=== PATIENT | male | born 1975 | race Caucasian/White ===

== ENCOUNTER 2023-08-02 08:40 | Outpatient (AMB) | payer BC, SELFPAY ==
--- NOTE | 2023-08-02 09:35 | AM.OFFWIN_ITS ---
Intake Vital Signs 08/02/23 09:39 Height 6 ft 1 in Weight 299 lb BMI 39.4 BP 160/100 H Blood Pressure Location Lt brachial Position Sitting Pulse 91 Temp 97.6 F Temp Source Temporal Artery Scan Pulse Oximetry (%) 98 Oxygen Delivery Method Room Air Intake Visit Reasons: EP chills congestion cough [id number] Intake Note: pt is here today for chills congestion cough started 2 weeks ago Patient Tobacco Use Status: Former Tobacco user Allergies No Known Allergies [No Known Allergies*] Allergy (Verified 08/05/23 19:49) Medication List - Last Reconciled 08/05/23 by Randal Nam MD albuterol sulfate 90 mcg/actuation 2 puffs PO Q6H PRN albuterol sulfate 2.5 mg (3 mL) inhalation QID PRN 30 days azithromycin (Zithromax) 250 mg PO ONCE 1 day codeine-guaifenesin 10-100 mg/5 mL 5 mL PO Q6H PRN diclofenac sodium 75 mg PO BID fluticasone propion-salmeterol 250-50 mcg/dose (Advair Diskus) 1 ea PO BID lisinopril 40 mg PO DAILY pantoprazole 20 mg PO DAILY 90 days prednisone 60 mg (3 x 20 mg) PO DAILY Do you need a note to return to daycare/school/sports/work: No HPI EP chills congestion cough [id number] HPI Details Patient presents for a sick visit. Reporting symptoms of sinus congestion, sore throat and difficulty swallowing. Low-grade fever. No family member is sick. No recent travel. Patient reports symptoms of malaise and fatigue. Symptoms of wheezing and headaches. [facility] Family History (Updated 07/02/20 @ 12:14 by Nneka Sullivan, KASSY, AGRICULTURAL TECHNICIAN) Father Unknown family medical history Mother Unknown family medical history Social History Patient Tobacco Use Status: Former Tobacco user Physical Exam Vital Signs: Last Vital Signs Temp 97.6 F 08/02/23 09:39 Pulse 91 08/02/23 09:39 BP 160/100 H 08/02/23 09:39 Pulse Ox 98 08/02/23 09:39 Oxygen Delivery Method Room Air 08/02/23 09:39 BMI result Body Mass Index 39.4 Const General: cooperative and healthy appearing Nutritional Appearance: well nourished Orientation/consciousness: patient oriented x3 Limitations: no limitations HEENT Head: Yes normal to inspection Eyes General: appearance normal, both eyes and all related structures Neck Neck: Yes normal visual inspection Chest Chest palpation & inspection: normal palpation of entire chest wall Resp Other: Bilateral rhonchi. Effort & Inspection: normal respiratory effort Neuro General: patient oriented x3 Assessment & Plan Assessment & Plan (1) Upper respiratory tract infection: Code(s): J06.9 - Acute upper respiratory infection, unspecified Plan Chest x-ray was personally reviewed by me. No infiltrate seen. Antibiotics ordered. Increase fluid intake. Tylenol for aches and pains. If symptoms worsen, follow-up here for a recheck. Flu swab ordered. Will call with results. Orders: Orders XR chest 2V 08/02/23 R05.9 - Cough, unspecified SARS-CoV2/FLU/RSV 08/02/23 R43.9 - Unspecified disturbances of smell and taste Medications: New azithromycin (Zithromax) 250 mg PO ONCE 4 tabs 0RF 1 day codeine-guaifenesin 10-100 mg/5 mL 5 mL PO Q6H PRN 120 mL 0RF allergy symptoms prednisone 60 mg (3 x 20 mg) PO DAILY 9 tabs 0RF Refilled albuterol sulfate 90 mcg/actuation 2 puffs PO Q6H PRN 8.5 grams 6RF for wheezing albuterol sulfate 2.5 mg (3 mL) inhalation QID PRN 15 mL 1RF shortness of breath or wheezing 30 days Coding Level of Care Code Est Pt Level 4 (62737) Diagnoses Upper respiratory tract infection J06.9
[2023-08-02 09:39] VITALS: BP 160/100; PULSE 91; TEMP 36.4; O2SAT 98; BMI 39.4
== END 2023-08-02 10:18 | disposition home or self-care (01) ==
PROVIDERS: PCP Nurse Practitioner Family; Visit Provider Internal Medicine
DX: J06.9 Acute upper respiratory infection, unspecified (principal)
CPT/HCPCS: 99214

== ENCOUNTER 2023-08-02 09:53 | Outpatient (REF) | payer BC, SELFPAY ==
--- NOTE | ~2023-08-02 | XR_ITS ---
EXAMINATION: XR CHEST CLINICAL INFORMATION: Cough and difficulty breathing unspecified COMPARISON: 01/07/2019 TECHNIQUE: 2 views of the chest were obtained. FINDINGS: Lungs clear. No pleural effusions. No pneumothorax. Heart and pulmonary vessels normal. XR/XR chest 2V IMPRESSION: No active disease.
[2023-08-02 15:27] LABS: Influenza A PCR NEGATIVE (Negative); Influenza B PCR NEGATIVE (Negative); Resp Syncy Virus RNA Qual PCR NEGATIVE (Negative); SARS COV2 PCR INHOUSE NEGATIVE (Negative)
== END 2023-08-02 09:54 | disposition home or self-care (01) ==
LOC: HO.HMGCX 09:53
PROVIDERS: Visit Provider Internal Medicine
DX: Z11.52 Encounter for screening for COVID-19 (principal); Z20.822 Contact with and (suspected) exposure to COVID-19; R05.9 Cough, unspecified; R43.9 Unspecified disturbances of smell and taste
CPT/HCPCS: 0241U; 71046

== ENCOUNTER 2023-08-02 12:55 | Outpatient (REF) | payer BC, SELFPAY | END 2023-08-02 12:56 | disposition home or self-care (01) | LOC: HO.LAB 12:55 | PROVIDERS: Visit Provider Internal Medicine | DX: Z13.89 Encounter for screening for other disorder (principal) ==

== ENCOUNTER 2023-10-11 15:51 | Outpatient (AMB) | payer BC, SELFPAY ==
--- NOTE | 2023-10-11 15:53 | A.OFFPC_ITS ---
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 Allergies No Known Allergies [No Known Allergies*] Allergy (Verified 10/11/23 16:29) Medication List - Last Reconciled 10/11/23 by HARIKA RuizP- albuterol sulfate 90 mcg/actuation 2 puffs PO Q6H PRN albuterol sulfate 2.5 mg (3 mL) inhalation QID PRN 30 days amlodipine 2.5 mg PO DAILY codeine-guaifenesin 10-100 mg/5 mL 5 mL PO Q6H PRN diclofenac potassium 25 mg PO BID diclofenac sodium 75 mg PO BID fluticasone propion-salmeterol 250-50 mcg/dose (Advair Diskus) 1 ea PO BID hydrochlorothiazide 12.5 mg PO DAILY lisinopril 40 mg PO DAILY montelukast 10 mg PO BEDTIME pantoprazole 20 mg PO DAILY 90 days prednisone 60 mg (3 x 20 mg) PO DAILY 7 days Tobacco use date assessed: 10/11/23 Dental Screening Dental Screen Date: 10/11/23 Did you have a dental visit in the last 12 months?: No Did you have a dental problem in the last 6 months where you did not have access to dental care?: No Was dental information given to patient?: Patient declined HPI 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 Will order labs. Due for PSA, will order. Denies dribbling with urination, weak stream, does report frequent nocturia. Due for colon screen, will refer to GI. HTN: Pt's blood pressure is elevated today. He reports being out of his lisinopril and hydrochlorothiazide for months. Will send these. Will also start amlodipine 2.5mg. Pt will drop off BPs in 4 weeks. Denies chest pain, headache, dizziness, and blurred vision. Pt has been smoking up to 2.5 packs a day since age 14, quit 4 months ago after getting COVID. Will refer for low-dose CT. Pt has a cystic lesion to his left lateral torso. He reports that this changes in size and has intermittent discharge. Will refer to general surgery. ? enlarged thyroid. Will order US. Pt has a hx of asthma. He has been experiencing more shortness of breath since having COVID in May of 2023. Will send singulair and prednisone. Will also order PFT testing and will send inhalers. Will order echo due to uncontrolled hypertension. Pt c/o i nsomnia. Will send trazodone. PFSH Family History Father Unknown family medical history Mother Unknown family medical history Social History (Reviewed 10/11/23 @ 16:29 by Modesto Orellana [facility]-) Housing: Apartment Patient Tobacco Use Status: Former Tobacco user Current occupational status: employed Cognitive needs: No Hearing needs: No Vision needs: No Questionnaire PHQ-9 Over the last 2 weeks, how often have you been bothered by any of the following problems? 1. Little interest or pleasure in doing things: several days 2. Feeling down, depressed, or hopeless: not at all 3. Trouble falling or staying asleep, or sleeping too much: nearly every day 4. Feeling tired or having little energy: nearly every day 5. Poor appetite or overeating: nearly every day 6. Feeling bad about yourself - or that you are a failure or have let yourself or your family down: not at all 7. Trouble concentrating on things, such as reading the newspaper or watching television: not at all 8. Moving or speaking so slowly that other people could have noticed. Or the opposite - being so fidgety or restless that you have been moving around a lot more than usual: several days 9. Thoughts that you would be better off or of hurting yourself in some way: not at all Total score: 11 Depression Screening Interpretation: Positive Depression Screening Done: Yes 60124 - PHQ-9 Billing: Yes Source: Developed by Drs. Felipe Alberts, Ya Cleary, Billy Roach and colleagues, with an educational james from [employer]. Thrive Questionnaire Date Thrive assessed: 11/15/23 I am a: Patient What is your living situation today?: I have a steady place to live Within the past 12 months, did the food you bought not last and you didn't have the money to get more?: Never true Within the past 12 months, did you worry whether your food would run out before you got money to buy more?: Never true Do you have trouble paying for medicines?: No Do you have trouble getting transportation to medical appointments?: No Do you have trouble paying your heating and electricity bill?: No Do you have trouble taking care of your child, family member or friend?: No Do you have trouble with day-to-day activities such as bathing, preparing meals, shopping, managing finances, etc.?: No Are you currently unemployed and looking for a job?: No Are you interested in more education?: No Please select the resources that you would like help with: None Currently or been in a relationship where the following occur: I choose not to answer this question THRIVE Score: 0 AUDIT C Alcohol Use Questionnaire (AUDIT-C) 1. How often do you have a drink containing alcohol?: Never 3. How often do you have six or more drinks on one occasion?: Never Total Score: 0 Score Reviewed/Action Taken: No REBECCA-7 AMB Questionnaire REBECCA-7 Date REBECCA - 7 assessed: 10/11/23 Feeling nervous, anxious, or on edge: 3 = Nearly every day Not being able to stop or control worryin = Several days Worrying too much about different things: 1 = Several days Trouble relaxin = Nearly every day Being so restless that it is hard to sit still: 1 = Several days Becoming easily annoyed or irritable: 3 = Nearly every day Feeling afraid as if something awful might happen: 0 = Not at all Total REBECCA-7 score (0-4 normal; 5-9 mild; 10-14 moderate; 15-21 severe): 12 Source: Developed by Drs. Felipe Alberts, Ya Cleary, Billy Roach and colleagues, with an educational james from [employer]. REBECCA-7 Assessment Billing REBECCA-7 Assessment Tool: REBECCA-7 Assessment 63508 Review of Systems Const Denies chills and Denies fever(s) Eyes Denies blurry vision ENT Denies vertigo, Denies dizziness and Denies sore throat Card Denies chest pain at rest, Denies chest pain with activity, Denies diaphoresis and Reports dyspnea Resp Denies cough, Reports dyspnea and Denies wheezing GI Denies abdominal pain, Denies melena, Denies hematochezia, Denies constipation, Denies diarrhea and Denies loose stools Denies hematuria Musc Denies numbness and Denies tingling Skin/Breast Denies lesions Neuro Denies vertigo, Denies dizziness, Denies numbness and Denies tingling Psych Denies anxiety, Denies depression, Denies homicidal ideation, Denies suicidal ideation and Denies other (substance abuse) Aller/Immun Denies wheezing Physical exam (Primary Care) Vital Signs: Last Vital Signs Pulse 93 10/11/23 16:03 BP 180/120 H 10/11/23 16:03 Pulse Ox 98 10/11/23 16:03 Oxygen Delivery Method Room Air 10/11/23 16:03 Tobacco/Smoking Status: Tobacco use Status Tobacco use date assessed 10/11/23 10/11/23 16:05 Patient Tobacco Use Status Former Tobacco user 10/11/23 15:54 PHQ-9: PHQ-9 Score PHQ-9: Total score 11 10/11/23 17:18 Depression Screening Interpretation: Positive Thrive Assessment: Date of Thrive Assessment Date Thrive assessed 11/15/23 10/11/23 17:18 Currently or been in a relationship where the following occur: I choose not to answer this question Const General: cooperative Nutritional Appearance: obese Orientation/consciousness: patient oriented x3 HENMT Head: Yes normal to inspection, Yes normocephalic and Yes atraumatic Ears: TM's normal bilaterally Eyes General: appearance normal, both eyes and all related structures Alignment and Position: alignment normal and position normal Neck Other: ? enlarged thyroid Neck: Yes normal visual inspection and Yes no lymphadenopathy Resp Other: lungs diminished/clear with faint scattered wheezes Effort & Inspection: normal respiratory effort Cardio Rate: regular rate Rhythm: regular rhythm Heart sounds: S1 normal heart sound present, S2 normal heart sound present and no murmurs GI Palpation (GI): Soft to palpation and nontender Auscultation: normal bowel sounds Male General Exam: Yes normal external exam Penis: normal penis Scrotum: scrotum normal, testes descended bilaterally and no inguinal hernias Testes: no testicular mass Skin Other: left lateral torso with large cystic lesion, fluctuance, TTP Rashes: no rashes Neuro General: patient oriented x3, moves all extremities, no focal motor deficits and deep tendon reflexes 2+ bilaterally Romberg Test: Negative Psych Appearance: grossly normal Mental Status: mental status grossly normal Speech and movement: Normal speech and movement present Affect: normal affect Attitude: cooperative Thought process: Normal thought process present Thought content: Normal thought content present Insight: Good insight present (Psych) Judgement: Good judgement present (Psych) Assessment and Plan Assessment & Plan (1) Screening for prostate cancer: Code(s): Z12.5 - Encounter for screening for malignant neoplasm of prostate Plan: PSA ordered (2) Physical exam, annual: Code(s): Z00.00 - Encounter for general adult medical examination without abnormal findings Plan: Labs ordered (3) Smoker: Code(s): F17.200 - Nicotine dependence, unspecified, uncomplicated Plan: Referred to thoracic (4) Abscess: Code(s): L02.91 - Cutaneous abscess, unspecified Plan: Referred to general surgery (5) Screening for colon cancer: Code(s): Z12.11 - Encounter for screening for malignant neoplasm of colon Plan: Referred to GI (6) Enlarged thyroid: Code(s): E04.9 - Nontoxic goiter, unspecified Plan: US ordered (7) Asthma: Code(s): J45.909 - Unspecified asthma, uncomplicated (8) Uncontrolled hypertension: Code(s): I10 - Essential (primary) hypertension Plan: pt knows to go to the er with any CP, increased SOB, dizziness, blurred vision, or HUMPHREYS Plan The patient agreed to the use of a medical parasitologist for this encounter. Scribed for JASKARAN Lopez by Omaira Vogel medical parasitologist, on 10/11/2023 at 16:20 EST. Orders: Orders Complete Blood Count Auto Diff Today Z00.00 - Encounter for general adult medical examination without abnormal findings Comprehensive [place]. Panel Fast Today Z00.00 - Encounter for general adult medical examination without abnormal findings TSH reflex Free T4 Today Z00.00 - Encounter for general adult medical examination without abnormal findings UA CC w/rflx Micro + Cult Today Z00.00 - Encounter for general adult medical examination without abnormal findings Lipid Panel Today Z00.00 - Encounter for general adult medical examination without abnormal findings PFT pulmonary function test Today F17.200 - Nicotine dependence, unspecified, uncomplicated, J45.909 - Unspecified asthma, uncomplicated CA echo transthoracic complete Today I10 - Essential (primary) hypertension Prostate Specific Antigen Scr Today Z12.5 - Encounter for screening for malignant neoplasm of prostate US thyroid Today E04.9 - Nontoxic goiter, unspecified Referrals Thoracic Surgery Referral F17.200 - Nicotine dependence, unspecified, uncomplicated General Surgery Referral L02.91 - Cutaneous abscess, unspecified Gastroenterology Referral Z12.11 - Encounter for screening for malignant neoplasm of colon Medications: New hydrochlorothiazide 12.5 mg PO DAILY 30 tabs 2RF amlodipine 2.5 mg PO DAILY 30 tabs 2RF montelukast 10 mg PO BEDTIME 90 tabs 0RF trazodone 100 mg PO BEDTIME PRN 30 tabs 2RF sleep Changed From prednisone 60 mg (3 x 20 mg) PO DAILY 9 tabs 0RF To prednisone 60 mg (3 x 20 mg) PO DAILY 21 tabs 0RF 7 days Refilled lisinopril 40 mg PO DAILY 90 tabs 3RF lisinopril 40 mg PO DAILY 90 tabs 3RF fluticasone propion-salmeterol 250-50 mcg/dose (Advair Diskus) 1 ea PO BID 60 ea 6RF albuterol sulfate 90 mcg/actuation 2 puffs PO Q6H PRN 8.5 grams 6RF for wheezing diclofenac sodium 75 mg PO BID 60 tabs 1RF Coding Level of Care Code New Pt Prev Care 40-64y(46652) Diagnoses Screening for prostate cancer Z12.5 Physical exam, annual Z00.00 Smoker F17.200 Abscess L02.91 Screening for colon cancer Z12.11 Enlarged thyroid E04.9 Asthma J45.909 Uncontrolled hypertension I10 Additional Codes REBECCA-7 Assessment Billing - REBECCA-7 Assessment Tool: REBECCA-7 Assessment 87641 ([id number])
[2023-10-11 16:03] VITALS: BP 180/120; PULSE 93; O2SAT 98
== END 2023-10-11 17:18 | disposition home or self-care (01) ==
PROVIDERS: PCP Nurse Practitioner Family; Visit Provider Nurse Practitioner Family
DX: Z00.00 Encounter for general adult medical examination without abnormal findings (principal); Z12.5 Encounter for screening for malignant neoplasm of prostate; F17.210 Nicotine dependence, cigarettes, uncomplicated; L02.91 Cutaneous abscess, unspecified; Z12.11 Encounter for screening for malignant neoplasm of colon; E04.9 Nontoxic goiter, unspecified; J45.909 Unspecified asthma, uncomplicated; I10 Essential (primary) hypertension
CPT/HCPCS: 99386

== ENCOUNTER 2023-11-20 15:16 | Outpatient (REF) | payer BC, SELFPAY ==
--- NOTE | ~2023-11-20 | US_ITS ---
EXAMINATION: US THYROID CLINICAL INFORMATION: Enlarged thyroid, limited exam due to body habitus. COMPARISON: None available. TECHNIQUE: Linear transducer asher-scale and color Doppler examination with attention to the region of the thyroid. FINDINGS: SIZE: Measurements of the thyroid lobes and nodules are given in sagittal, anteroposterior and transverse dimensions respectively. Right Thyroid Lobe: 5.1 x 2.1 x 1.4 cm, volume 7.7 mL. Parenchyma: The gland echotexture is heterogeneous. Thyroid vascularity is normal. Left Thyroid Lobe: 4.9 x 1.9 x 1.5 cm, volume 6.9 mL. Parenchyma: The gland echotexture is heterogeneous. Thyroid vascularity is normal. Isthmus: 0.83 cm in maximum AP dimension. No suspicious thyroid nodule appreciated. NODES: No lymphadenopathy is seen in the tissue surrounding the thyroid gland. US/US thyroid IMPRESSION: Heterogeneous thyroid gland. No suspicious thyroid nodule identified. ACR TI-RADS RECOMMENDATION REFERENCE: Ultrasound-guided fine-needle aspiration, followup ultrasound, no further follow up. * TR1 (0 point) and TR2 (2 points): No FNA or follow up. * TR3 (3 points): FNA if more than or equal to 2.5 cm in maximum dimension, followup ultrasound in 1, 3 and 5 years if 1.5 to 2.4 cm in maximum dimension. * TR4 (4-6 points): FNA if more than or equal to 1.5 cm in maximum dimension, followup ultrasound in 1, 2, 3 and 5 years if 1 to 1.4 cm in maximum dimension. * TR5 (more than or equal to 7 points): FNA if more than or equal to 1 cm in maximum dimension, followup ultrasound every year for 5 years if 0.5 to 0.9 cm in maximum dimension. * TR3, TR4 or TR5 nodules that are below the size threshold for followup receive no follow up.
== END 2023-11-20 15:17 | disposition home or self-care (01) ==
LOC: HO.HMGCX 15:16
PROVIDERS: PCP Nurse Practitioner Family; Visit Provider Nurse Practitioner Family
DX: E04.9 Nontoxic goiter, unspecified (principal)
CPT/HCPCS: 76536

== ENCOUNTER 2023-11-20 15:28 | Outpatient (AMB) | payer BC, SELFPAY ==
--- NOTE | 2023-11-20 15:33 | MHC.OFFWIV ---
Intake Vital Signs 11/20/23 15:43 Height 6 ft 1 in BP 150/80 H Blood Pressure Location Rt brachial Position Sitting Pulse 87 Pulse Source Pulse Oximeter Temp 97.9 F Temp Source Oral Pulse Oximetry (%) 97 Oxygen Delivery Method Room Air Intake Visit Reasons: EST/ reaction to meds? hands/ throat bothering him Intake Note: pt is here due to a reaction of medications that were prescribed to him by his pcp, he says hes been getting muscle spasms in his hands and throat Patient Tobacco Use Status: Former Tobacco user Allergies No Known Allergies [No Known Allergies*] Allergy (Verified 10/11/23 16:29) Do you need a note to return to daycare/school/sports/work: No HPI EST/ reaction to meds? hands/ throat bothering him HPI Details 48 yr old male presents to the office for a sick visit. Patient is reporting he is having spasms in his fingers and toes. Upper back discomfirt. Started all meds recently but has not had the time for blood work. Feels agitiated at times. Not sleeping well at night. Taking edibles to calm himself down. [facility] Family History Father Unknown family medical history Mother Unknown family medical history Social History Housing: Apartment Patient Tobacco Use Status: Former Tobacco user Current occupational status: employed Cognitive needs: No Hearing needs: No Vision needs: No Physical Exam Vital Signs: Last Vital Signs Temp 97.9 F 11/20/23 15:43 Pulse 87 11/20/23 15:43 BP 150/80 H 11/20/23 15:43 Pulse Ox 97 11/20/23 15:43 Oxygen Delivery Method Room Air 11/20/23 15:43 Const General: cooperative and healthy appearing Nutritional Appearance: well nourished Orientation/consciousness: patient oriented x3 Limitations: no limitations HEENT Head: Yes normal to inspection Eyes General: appearance normal, both eyes and all related structures Neck Neck: Yes normal visual inspection Chest Chest palpation & inspection: normal palpation of entire chest wall Resp Effort & Inspection: normal respiratory effort Neuro General: patient oriented x3 Assessment & Plan Assessment & Plan (1) Upper back pain: Code(s): M54.9 - Dorsalgia, unspecified Plan: Patient is demonstrating marked anxiety. I encouraged him to get blood work done and follow up with his PCP. Cyclobenzaprine has been added to the regimen. Coding Level of Care Code Est Pt Level 3 (19306) Diagnoses Upper back pain M54.9
[2023-11-20 15:43] VITALS: BP 150/80; PULSE 87; TEMP 36.6; O2SAT 97
== END 2023-11-20 16:41 | disposition home or self-care (01) ==
PROVIDERS: PCP Nurse Practitioner Family; Visit Provider Internal Medicine
DX: M54.9 Dorsalgia, unspecified (principal)
CPT/HCPCS: 99213

== ENCOUNTER → 2023-12-06 07:40 | Outpatient (REF) | payer BC, SELFPAY ==
--- NOTE | 2023-12-06 07:42 | CA_ITS ---
Transthoracic Echocardiogram Patient (Last, First, Middle): Jonathan Kimball E Gender: Male Date of : 1975 Age: 48 Procedure Date: 12/06/2023 Procedure Type: Transthoracic Echocardiogram Location: OP Height: 185.42 cm Weight: 145.15 kg BSA: 2.63 m2 Heart Rate: bpm BP: 150 / 100 mmHg Creative Art Director: TO Referring MD: Modesto Orellana [facility] Symptoms: I10 - Essential (primary) hypertension Study Quality: Fair/declined contrast ECG Rhythm: Sinus Conclusions: - The left ventricular systolic function is normal. The visually estimated ejection fraction is between 55-60%. - No obvious valvular pathology seen on this study. - There is mild dilatation of the sinuses of Valsalva measuring 4.10 cm and mild dilatation of the ascending aorta measuring 4.00 cm. Findings Procedure Information The patient declines contrast. Left Ventricle Normal left ventricular cavity size. The left ventricular systolic function is normal. The visually estimated ejection fraction is between 55-60%. Diastolic function is normal for age. There is mild septal asymmetric hypertrophy. No overt wall motion abnormality, but visualization is limited. Right Ventricle Normal right ventricular cavity size. Atria Both atria are normal in size. Aortic Valve There is a normal trileaflet aortic valve. There is no aortic valve stenosis. There is no aortic valve regurgitation. Mitral Valve The mitral valve appears normal. There is no mitral valve regurgitation. There is no mitral valve stenosis. Pulmonic Valve The pulmonic valve is likely normal. Tricuspid Valve The tricuspid valve was not well visualized. There is trace tricuspid valve regurgitation. There is no evidence of pulmonary hypertension. Great Vessels There is mild dilatation of the sinuses of Valsalva measuring 4.10 cm and mild dilatation of the ascending aorta measuring 4.00 cm. Venous The inferior vena cava was not well visualized. The inferior vena cava is mildly dilated. Pericardium/Pleural There is no evidence of pericardial effusion. Prior Study Comparison Changes noted compared to prior study dated: 08/08/2018. Increase in ascending aortic size. Recommendations, Care & Conclusions No obvious valvular pathology seen on this study. Measurements 2D Linear Measurements IVSd: 1.19 0.6-0.9/0.6-1.0 cm LVIDd: 5.18 3.9-5.3/4.2-5.9 cm LVIDd Index: 1.97 2.4-3.2/2.2-3.1 cm/m2 LVIDs: 3.80 2.0-3.6 cm LVPWd: 0.95 0.7-1.1 cm LA Diam: 3.20 2.7-3.8/3.0-4.0 cm LAIDs Index: 1.22 1.5-2.3 cm/m2 LV Mass: 262.86 67-162/88-224 g LV Mass Index: 99.95 43-95/49-115 g/m2 LVOT Diam: 2.40 3.0+(-)1.3 cm 2D Systolic Function EF 4C: 54.40 >55% Mitral Valve MV VTI: 0.26 MV Pk Michael: 0.98 MV Mn Michael: 0.70 MV Pk Grad: 4.00 MV Mn Grad: 2.00 MV Pk E: 0.69 MV PK A: 0.58 MV Decel Time: 198.00 E/A: 1.20 E'Lateral: 8.49 E'Medial: 5.98 E/E' Med: 11.50 E/E' Lat: 8.10 PHT: 58.00 MVA PHT: 3.79 MVA Continuity: 3.56 Decel Saline: 3.48 Aortic Valve AoV Pk Michael: 1.28 AoV Mn Michael: 0.89 AoV VTI: 0.27 AoV Pk Grad: 7.00 Aov Mn Grad: 4.00 JENNY Cont.VTI: 3.50 LVOT LVOT Pk Michael: 1.01 LVOT Mn Michael: 0.68 LVOT VTI: 0.21 LVOT Pk Grad: 4.00 LVOT Mn Grad: 2.00 LVOT Diam: 2.40 LVOT Area: 4.52 Diastolic Function MV Pk E: 0.69 MV Pk A: 0.58 E/A: 1.20 E'Medial: 5.98 E/E' Med: 11.50 E' Laterial: 8.49 E/E' Lat: 8.10 Right Ventricle TAPSE (mm): 29.80 TVS' Michael: 11.50 Great Vessels Aorta Sinus of Valsalva: 4.10 2.0-3.5 cm Ao Asc: 4.00 2.1-3.4 cm Ao Arch: 3.90 Updated in Other Vendor System with Status of Final Adrien Ely MD electronically signed on 12/07/2023 10:40:17 AM with status of Final
== END ==
LOC: HO.CARD 07:40
PROVIDERS: PCP Nurse Practitioner Family; Visit Provider Nurse Practitioner Family
DX: I10 Essential (primary) hypertension (principal)
CPT/HCPCS: 93306

== ENCOUNTER → 2023-12-06 07:42 | Outpatient (BNV) | payer BC, SELFPAY | PROVIDERS: PCP Nurse Practitioner Family; Visit Provider Internal Medicine | DX: I42.2 Other hypertrophic cardiomyopathy (principal) | CPT/HCPCS: 93306 ==

== ENCOUNTER 2024-02-12 13:47 | Outpatient (AMB) | payer BC, SELFPAY ==
--- NOTE | 2024-02-12 13:51 | MHC.PC.OV ---
Vital Signs 02/12/24 13:55 Height 6 ft 1 in Weight 321 lb BMI 42.3 BP 140/100 H Blood Pressure Location Lt brachial Position Sitting Pulse 86 Pulse Source Pulse Oximeter Pulse Oximetry (%) 98 Oxygen Delivery Method Room Air Intake Visit Reasons: 2M F/U Happy Birthday Intake Note: Patient here for bilat pins and needles, feeling of being wet when they are not. Allergies No Known Allergies [No Known Allergies*] Allergy (Verified 02/12/24 13:56) Medication List - Last Reconciled 02/12/24 by JORY Ruiz- albuterol sulfate 2.5 mg (3 mL) inhalation QID PRN 30 days albuterol sulfate 90 mcg/actuation 2 puffs PO Q6H PRN amlodipine 5 mg PO DAILY cyclobenzaprine 10 mg PO BEDTIME diclofenac potassium 25 mg PO BID diclofenac sodium 75 mg PO BID fluticasone propion-salmeterol 250-50 mcg/dose (Advair Diskus) 1 ea PO BID hydrochlorothiazide 12.5 mg PO DAILY lisinopril 40 mg PO DAILY montelukast 10 mg PO BEDTIME pantoprazole 20 mg PO DAILY 90 days trazodone 100 mg PO BEDTIME PRN Tobacco use date assessed: 10/11/23 Dental Screening Dental Screen Date: 10/11/23 HPI 2M F/U [facility] Birthday HPI Details HTN: Blood pressure is managed with amlodipine 2.5mg, hydrochlorothiazide 12.5mg, and lisinopril 40mg. Pt's blood pressure is elevated today, though pt reports that he is in the 120s/80s at home. Will increase amlodipine from 2.5mg to 5mg. Pt has started smoking at age 14, up to 2 packs per day. He quit smoking approximately 6 months ago but does vape. Will RErefer for low-dose CT. Pt has a hx of asthma. Will REorder PFT testing. Pt c/o bilat hand numbness. He reports that this is worse in the morning. Pt tried wearing braces and wrapping a towel around his arm which did not help. Will order EMG/nerve conduction testing. Denies chest pain, shortness of breath, headache, dizziness, and blurred vision. [facility] Medical History Mild ascending aorta dilation Family History Father Unknown family medical history Mother Unknown family medical history Social History Housing: Apartment Patient Tobacco Use Status: Former Tobacco user Current occupational status: employed Cognitive needs: No Hearing needs: No Vision needs: No Questionnaire PHQ-9 Over the last 2 weeks, how often have you been bothered by any of the following problems? 1. Little interest or pleasure in doing things: not at all 2. Feeling down, depressed, or hopeless: not at all 3. Trouble falling or staying asleep, or sleeping too much: not at all 4. Feeling tired or having little energy: not at all 5. Poor appetite or overeating: not at all 6. Feeling bad about yourself - or that you are a failure or have let yourself or your family down: not at all 7. Trouble concentrating on things, such as reading the newspaper or watching television: not at all 8. Moving or speaking so slowly that other people could have noticed. Or the opposite - being so fidgety or restless that you have been moving around a lot more than usual: not at all 9. Thoughts that you would be better off or of hurting yourself in some way: not at all Total score: 0 Depression Screening Interpretation: Negative Depression Screening Done: Yes 55089 - PHQ-9 Billing: Yes Source: Developed by Drs. Felipe Alberts, Ya Cleary, Billy Roach and colleagues, with an educational james from [email or web address]. Thrive Questionnaire Date Thrive assessed: 02/12/24 I am a: Patient What is your living situation today?: I have a steady place to live Within the past 12 months, did the food you bought not last and you didn't have the money to get more?: Never true Within the past 12 months, did you worry whether your food would run out before you got money to buy more?: Never true Do you have trouble paying for medicines?: No Do you have trouble getting transportation to medical appointments?: No Do you have trouble paying your heating and electricity bill?: No Do you have trouble taking care of your child, family member or friend?: No Do you have trouble with day-to-day activities such as bathing, preparing meals, shopping, managing finances, etc.?: No Are you currently unemployed and looking for a job?: No Are you interested in more education?: No Please select the resources that you would like help with: Housing/Detention Currently or been in a relationship where the following occur: No concerns reported THRIVE Score: 0 AUDIT C Alcohol Use Questionnaire (AUDIT-C) 1. How often do you have a drink containing alcohol?: 2-4 times a month 2. How many drinks containing alcohol do you have on a typical day when you are drinking?: 3 or 4 3. How often do you have six or more drinks on one occasion?: Monthly Total Score: 5 REBECCA-7 AMB Questionnaire REBECCA-7 Date REBECCA - 7 assessed: 10/11/23 Feeling nervous, anxious, or on edge: 3 = Nearly every day Not being able to stop or control worryin = More than half the days Worrying too much about different things: 3 = Nearly every day Trouble relaxin = Nearly every day Being so restless that it is hard to sit still: 3 = Nearly every day Becoming easily annoyed or irritable: 3 = Nearly every day Feeling afraid as if something awful might happen: 0 = Not at all Total REBECCA-7 score (0-4 normal; 5-9 mild; 10-14 moderate; 15-21 severe): 17 Source: Developed by Drs. Felipe Alberts, Ya Cleary, Billy Roach and colleagues, with an educational james from [email or web address]. REBECCA-7 Assessment Billing REBECCA-7 Assessment Tool: REBECCA-7 Assessment 13079 (denies any SI or HI, refuses a therapist) Review of Systems Const Reports as per HPI Physical exam (Primary Care) Vital Signs: Last Vital Signs Pulse 86 02/12/24 13:55 BP 140/100 H 02/12/24 13:55 Pulse Ox 98 02/12/24 13:55 Oxygen Delivery Method Room Air 02/12/24 13:55 BMI result Body Mass Index 42.3 Tobacco/Smoking Status: Tobacco use Status Tobacco use date assessed 10/11/23 02/12/24 13:51 Patient Tobacco Use Status Former Tobacco user 02/12/24 13:51 PHQ-9: PHQ-9 Score PHQ-9: Total score 0 02/12/24 14:22 Depression Screening Interpretation: Negative Thrive Assessment: Date of Thrive Assessment Date Thrive assessed 02/12/24 02/12/24 13:51 Currently or been in a relationship where the following occur: No concerns reported Const General: cooperative Nutritional Appearance: obese morbidly obese Orientation/consciousness: patient oriented x3 Resp Effort & Inspection: normal respiratory effort Auscultation: clear to auscultation bilaterally Cardio Rate: regular rate Rhythm: regular rhythm Heart sounds: S1 normal heart sound present and S2 normal heart sound present Neuro General: patient oriented x3 Psych Appearance: grossly normal Mental Status: mental status grossly normal Speech and movement: Normal speech and movement present Affect: normal affect Attitude: cooperative Thought process: Normal thought process present Thought content: Normal thought content present Insight: Good insight present (Psych) Judgement: Good judgement present (Psych) Assessment and Plan Assessment & Plan (1) Asthma: Code(s): J45.909 - Unspecified asthma, uncomplicated Plan: PFT testing ordered (2) Smoker: Code(s): F17.200 - Nicotine dependence, unspecified, uncomplicated Plan: PFT testing ordered, referred for low-dose CT (3) Numbness and tingling in both hands: Code(s): R20.0 - Anesthesia of skin; R20.2 - Paresthesia of skin Plan: EMG/nerve conducton ordered Plan The patient agreed to the use of a director medical economics for this encounter. Scribed for JASKARAN Lopez by jesus Jyo scribe, on 02/12/2024 at 14:15 EST. Orders: Orders PFT pulmonary function test Today F17.200 - Nicotine dependence, unspecified, uncomplicated, J45.909 - Unspecified asthma, uncomplicated NE electromyogram (EMG) Today R20.0 - Anesthesia of skin, R20.2 - Paresthesia of skin NE nerve conduction velocity Today R20.0 - Anesthesia of skin, R20.2 - Paresthesia of skin Referrals Lung Cancer Screening Referral F17.200 - Nicotine dependence, unspecified, uncomplicated Medications: Changed From amlodipine 2.5 mg PO DAILY 30 tabs 2RF To amlodipine 5 mg PO DAILY 90 tabs 2RF From trazodone 100 mg PO BEDTIME PRN 30 tabs 2RF sleep To trazodone 200 mg (2 x 100 mg) PO BEDTIME PRN 30 tabs 2RF sleep Refilled albuterol sulfate 2.5 mg (3 mL) inhalation QID PRN 15 mL 1RF shortness of breath or wheezing 30 days Coding Level of Care Code Est Pt Level 3 (21538) Diagnoses Asthma J45.909 Smoker F17.200 Numbness and tingling in both hands R20.0; R20.2 Additional Codes REBECCA-7 Assessment Billing - REBECCA-7 Assessment Tool: REBECCA-7 Assessment 03354 ([id number])
[2024-02-12 13:55] VITALS: BP 140/100; PULSE 86; O2SAT 98; BMI 42.3
== END 2024-02-12 16:40 | disposition home or self-care (01) ==
PROVIDERS: PCP Nurse Practitioner Family; Visit Provider Nurse Practitioner Family
DX: J45.909 Unspecified asthma, uncomplicated (principal); Z87.891 Personal history of nicotine dependence; R20.0 Anesthesia of skin; R20.2 Paresthesia of skin
CPT/HCPCS: 99213

== ENCOUNTER 2024-03-12 07:43 | Outpatient (REF) | payer BC, SELFPAY | END 2024-03-12 07:44 | disposition home or self-care (01) | LOC: HO.NEURO 07:43 | PROVIDERS: Visit Provider Nurse Practitioner Family | DX: Z13.89 Encounter for screening for other disorder (principal) ==

== ENCOUNTER 2024-11-14 12:49 | Outpatient (AMB) | payer BC, SELFPAY ==
[2024-11-14 12:55] VITALS: BP 140/82; PULSE 94; RESP 20; TEMP 36.7; O2SAT 95; BMI 42.2
--- NOTE | 2024-11-14 12:55 | A.OFFPC_ITS ---
Vital Signs 11/14/24 12:55 11/14/24 13:31 Height 6 ft 1 in Weight 320 lb BMI 42.2 BP 140/82 H 136/80 Blood Pressure Location Lt brachial Lt brachial Position Sitting Sitting Respiration 20 Pulse 94 Pulse Source Pulse Oximeter Temp 98.1 F Temp Source Oral Pulse Oximetry (%) 95 Oxygen Delivery Method Room Air Intake Visit Reasons: Follow Up Appt Intake Note: Pt is here today for a follow up visit. Allergies No Known Allergies [No Known Allergies*] Allergy (Verified 11/14/24 12:56) Medication List - Last Reconciled 11/14/24 by Modesto Orellana, LINE O SCRIBE OPERATOR- albuterol sulfate 2.5 mg (3 mL) inhalation QID PRN 30 days albuterol sulfate 90 mcg/actuation 2 puffs PO Q6H PRN amlodipine 5 mg PO DAILY diclofenac potassium 25 mg PO BID diclofenac sodium 75 mg PO BID fluticasone propion-salmeterol 250-50 mcg/dose (Advair Diskus) 1 ea PO BID hydrochlorothiazide 12.5 mg PO DAILY lisinopril 40 mg PO DAILY montelukast 10 mg PO BEDTIME pantoprazole 20 mg PO DAILY 90 days trazodone 200 mg (2 x 100 mg) PO BEDTIME PRN Tobacco use date assessed: 11/14/24 Dental Screening Dental Screen Date: 11/14/24 Did you have a dental visit in the last 12 months?: No Did you have a dental problem in the last 6 months where you did not have access to dental care?: No Was dental information given to patient?: Patient declined HPI Follow Up Appt HPI Details Chief Complaint Shortness of breath and follow-up for hypertension management. History of Present Illness The patient is a 49-year-old male presenting with shortness of breath and essential hypertension. The shortness of breath began increasing following a COVID-19 infection in February. Prior heavy tobacco use and current vaping are contributory factors in the respiratory symptoms. His hypertension is currently under control with medication. The patient has previously been referred for a low-dose CAT scan and PFT due to respiratory concerns and was provided with these referrals again due to non-completion. The patient denies experiencing any chest pain and is advised to proceed with the recommended assessments promptly. Inhalers refilled Trigger finger reported to left 5th finger and second right finger, referral placed. Social History - Former heavy tobacco smoker; currently using e-cigarettes (vaping). - Experiences some anxiety regarding his health. Health Maintenance - Referral for low-dose CAT scan provide d. - Referral for pulmonary function tests (PFT) resubmitted. - Encouraged to get routine laboratory w ork completed as soon as possible. Review of Systems - Respiratory: Reports shortness of adair th. - Cardiovascular: Denies chest pain. -denies any dizziness, N/V, blurred visi on Physical Exam General: Cooperative, healthy appearing, comfortable, no acute distress and well developed Orientation: Patient oriented x3 Limitations: No limitations Head: Normal to inspection Ears: Hearing grossly normal bilaterally Nose: Normal external nose present Face and sinus: Normal facial exam Eyes: Appearance normal, both eyes and all related structures Neck: Normal visual inspection and Yes full ROM Respiratory: Diminished breath sounds bilaterally with some faint scattered wheezes, moving air. Able to speak in complete sentences. Cardiovascular: Regular rate and rhythm. Normal S1 and S2 GI: Normal to inspection. Soft to palpation and nontender Skin: No rashes or lesions noted Neuro: Patient oriented x3 Extremities: Normal to inspection Results Plan Current antihypertensive medication will be continued due to the improvement in blood pressure control. Low-dose CAT scan and pulmonary function testing are necessary follow-ups to the concerning respiratory symptoms and diminished lung function. I have provided the patient with new referrals and urged completion. Routine laboratory work is recommended for comprehensive health monitoring. Smoking/vaping cessation remains critical and was discussed in detail due to the respiratory implications highlighted by the shortness of breath. Discussion Notes During this visit, I discussed the patient's hypertension, which is currently managed well with medication, resulting in improved blood pressure readings. We also discussed the shortness of breath, urging completion of a low-dose CAT scan and pulmonary function tests to gain further insights into pulmonary health [id number] and given the history of smoking and current vaping. I emphasized the importance of ceasing all forms of tobacco and nicotine use. I provided a contact number to facilitate the completion of referrals and encouraged routine laboratory testing to ensure optimal management of his conditions. Follow-up pl ans were dependent on upcoming test results and completion of the stated assessments. Patient Instructions - Continue taking blood pressure medicat ion as prescribed. - Complete low-dose CAT scan and pulmona ry function tests as scheduled. - Get routine lab work done soon. - Consider stopping vaping to improve re spiratory health. - Call the provided number to schedule p reviously mentioned scans. [facility] Medical History Mild ascending aorta dilation Family History Father Unknown family medical history Mother Unknown family medical history Social History Housing: Apartment Patient Tobacco Use Status: Former Tobacco user e-Cigarette/Vaping Use: Never Used service: No Current occupational status: employed Cognitive needs: No Hearing needs: No Vision needs: No Questionnaire PHQ-9 Over the last 2 weeks, how often have you been bothered by any of the following problems? 1. Little interest or pleasure in doing things: several days 2. Feeling down, depressed, or hopeless: several days 3. Trouble falling or staying asleep, or sleeping too much: several days 4. Feeling tired or having little energy: several days 5. Poor appetite or overeating: several days 6. Feeling bad about yourself - or that you are a failure or have let yourself or your family down: several days 7. Trouble concentrating on things, such as reading the newspaper or watching television: several days 8. Moving or speaking so slowly that other people could have noticed. Or the opposite - being so fidgety or restless that you have been moving around a lot more than usual: several days 9. Thoughts that you would be better off or of hurting yourself in some w ay: not at all Total score: 8 Depression Screening Interpretation: Negative Depression Screening Done: Yes 39818 - PHQ-9 Billing: Yes Source: Developed by Drs. Felipe Alberts, Ya Cleary, Billy Roach and colleagues, with an educational james from [employer]. Thrive Questionnaire Date Thrive assessed: 11/14/24 I am a: Patient What is your living situation today?: I have a steady place to live Within the past 12 months, did the food you bought not last and you didn't have the money to get more?: Never true Within the past 12 months, did you worry whether your food would run out before you got money to buy more?: Never true Do you have trouble paying for medicines?: No Do you have trouble getting transportation to medical appointments?: No Do you have trouble paying your heating and electricity bill?: No Do you have trouble taking care of your child, family member or friend?: No Do you have trouble with day-to-day activities such as bathing, preparing meals, shopping, managing finances, etc.?: No Are you currently unemployed and looking for a job?: No Are you interested in more education?: No Please select the resources that you would like help with: None Currently or been in a relationship where the following occur: No concerns reported THRIVE Score: 0 AUDIT C Alcohol Use Questionnaire (AUDIT-C) 1. How often do you have a drink containing alcohol?: 2-4 times a month 2. How many drinks containing alcohol do you have on a typical day when you are drinking?: 3 or 4 3. How often do you have six or more drinks on one occasion?: Never Total Score: 3 REBECCA-7 AMB Questionnaire REBECCA-7 Date REBECCA - 7 assessed: 11/14/24 Feeling nervous, anxious, or on edge: 3 = Nearly every day Not being able to stop or control worryin = Nearly every day Worrying too much about different things: 3 = Nearly every day Trouble relaxin = Nearly every day Being so restless that it is hard to sit still: 3 = Nearly every day Becoming easily annoyed or irritable: 3 = Nearly every day Feeling afraid as if something awful might happen: 3 = Nearly every day Total REBECCA-7 score (0-4 normal; 5-9 mild; 10-14 moderate; 15-21 severe): 21 Source: Developed by Drs. Felipe Alberts, Ya Cleary, Billy Roach and colleagues, with an educational james from [employer]. REBECCA-7 Assessment Billing REBECCA-7 Assessment Tool: REBECCA-7 Assessment 24865 Physical exam (Primary Care) Vital Signs: Last Vital Signs Temp 98.1 F 11/14/24 12:55 Pulse 94 11/14/24 12:55 Resp 20 11/14/24 12:55 BP 140/82 H 11/14/24 12:55 Pulse Ox 95 11/14/24 12:55 Oxygen Delivery Method Room Air 11/14/24 12:55 BMI result Body Mass Index 42.2 Tobacco/Smoking Status: Tobacco use Status Tobacco use date assessed 11/14/24 11/14/24 13:02 Patient Tobacco Use Status Former Tobacco user 11/14/24 13:02 e-Cigarette/Vaping Use Never Used 11/14/24 13:02 PHQ-9: PHQ-9 Score PHQ-9: Total score 8 11/14/24 13:14 Depression Screening Interpretation: Negative Thrive Assessment: Date of Thrive Assessment Date Thrive assessed 11/14/24 11/14/24 13:02 Currently or been in a relationship where the following occur: No concerns reported Coding Level of Care Code Est Pt Level 4 (60748) Diagnoses Smoker F17.200 SOB (shortness of breath) R06.02 Uncontrolled hypertension I10 Screening for prostate cancer Z12.5 Trigger finger M65.30 Additional Codes REBECCA-7 Assessment Billing - REBECCA-7 Assessment Tool: REBECCA-7 Assessment 92060 ([id number]) PHQ-9 - 48680 - PHQ-9 Billing: Yes ([id number]) Assessment & Plan Assessment & Plan (1) Smoker: Code(s): F17.200 - Nicotine dependence, unspecified, uncomplicated Category: Social Hx (2) SOB (shortness of breath): Code(s): R06.02 - Shortness of breath Category: Medical (3) Uncontrolled hypertension: Code(s): I10 - Essential (primary) hypertension Category: Medical (4) Screening for prostate cancer: Code(s): Z12.5 - Encounter for screening for malignant neoplasm of prostate Category: Medical (5) Trigger finger: Code(s): M65.30 - Trigger finger, unspecified finger Category: Medical Plan . Orders: Orders Comprehensive [place]. Panel Fast Today I10 - Essential (primary) hypertension TSH reflex Free T4 Today I10 - Essential (primary) hypertension Lipid Panel Today I10 - Essential (primary) hypertension Prostate Specific Antigen Scr Today Z12.5 - Encounter for screening for malignant neoplasm of prostate PFT pulmonary function test Today F17.200 - Nicotine dependence, unspecified, uncomplicated, R06.02 - Shortness of breath Complete Blood Count Auto Diff Today I10 - Essential (primary) hypertension UA CC w/rflx Micro + Cult Today I10 - Essential (primary) hypertension Referrals Cologuard Test Z12.11 - Encounter for screening for malignant neoplasm of colon, Z12.12 - Encounter for screening for malignant neoplasm of rectum Orthopedics Referral M65.30 - Trigger finger, unspecified finger Medications: Refilled albuterol sulfate 90 mcg/actuation 2 puffs PO Q6H PRN 8.5 grams 6RF for wheezing fluticasone propion-salmeterol 250-50 mcg/dose (Advair Diskus) 1 ea PO BID 60 ea 6RF albuterol sulfate 2.5 mg (3 mL) inhalation QID 30 days PRN 15 mL 1RF shortness of breath or wheezing
[2024-11-14 13:31] VITALS: BP 136/80
== END 2024-11-14 15:01 | disposition home or self-care (01) ==
LOC: HO.HMCC 12:50
PROVIDERS: PCP Nurse Practitioner Family; Visit Provider Nurse Practitioner Family
DX: F17.200 Nicotine dependence, unspecified, uncomplicated (principal); R06.02 Shortness of breath; I10 Essential (primary) hypertension; Z12.5 Encounter for screening for malignant neoplasm of prostate; M65.30 Trigger finger, unspecified finger

== ENCOUNTER → 2024-11-14 12:49 | Outpatient (BNVA) | payer BC, SELFPAY | PROVIDERS: PCP Nurse Practitioner Family; Visit Provider Nurse Practitioner Family | DX: R06.02 Shortness of breath (principal); I10 Essential (primary) hypertension; M65.30 Trigger finger, unspecified finger; Z87.891 Personal history of nicotine dependence | CPT/HCPCS: 96127 ==

== ENCOUNTER → 2024-12-06 08:58 | Outpatient (REF) | payer BC, SELFPAY ==
--- NOTE | 2024-12-06 09:00 | CA_ITS ---
Transthoracic Echocardiogram Patient (Last, First, Middle): Jonathan Kimball E Gender: Male Date of : 1975 Age: 49 Procedure Date: 12/06/2024 Procedure Type: Transthoracic Echocardiogram Location: OP Height: 185. cm Weight: 145.15 kg BSA: 2.62 m2 Heart Rate: 76 bpm BP: 165 / 105 mmHg Customer Service Representative Teacher: NIRU Referring MD: Modesto Orellana [facility] History Professor: Thang Gotti MD Symptoms: I77.810 - Thoracic aortic ectasia Study Quality: Fair ECG Rhythm: Sinus Conclusions: - 1. Normal LV ejection fraction 55-60% with mild LVH with impaired relaxation filling pattern 2. Normal cardiac valvular Dopplers 3. Mildly dilated ascending aorta 3.9 cm 4. No gross pericardial effusion Findings Left Ventricle Normal left ventricular size and systolic function. There is mildly increased left ventricular wall thickness. The visually estimated ejection fraction is between 55-60%. Regional wall motion abnormalities can not be excluded due to suboptimal endocardial definition. Spectral Doppler is indicative of an impaired relaxation filling pattern. E/E prime ratio is between 8 and 15 consistent with indeterminate filling pressures. Right Ventricle The right ventricle was not well visualized. Mildly increased right ventricular cavity size. Atria The left atrium is normal in size. The right atrium was not well visualized. Aortic Valve The aortic valve structure and function is likely normal. There is no aortic valve stenosis. There is no aortic valve regurgitation. Mitral Valve Normal mitral valve structure and function. There is trace mitral valve regurgitation. There is no mitral valve stenosis. Pulmonic Valve The pulmonic valve is likely normal. Tricuspid Valve Normal tricuspid valve structure. Tricuspid regurgitation envelope is inadequate for calculation of right ventricular systolic pressure. Normal right atrial pressure. Great Vessels The pulmonary artery was not well visualized. There is mild dilatation of the ascending aorta measuring 3.90 cm. Venous The inferior vena cava is normal in size and collapses greater than 50% with inspiration. Pericardium/Pleural There is no evidence of pericardial effusion. Prior Study Comparison No significant change compared to prior study dated: 12/06/2023. Measurements 2D Linear Measurements IVSd: 1.25 0.6-0.9/0.6-1.0 cm LVIDd: 4.74 3.9-5.3/4.2-5.9 cm LVIDd Index: 1.81 2.4-3.2/2.2-3.1 cm/m2 LVIDs: 2.65 2.0-3.6 cm LVPWd: 1.19 0.7-1.1 cm LA Diam: 3.80 2.7-3.8/3.0-4.0 cm LAIDs Index: 1.45 1.5-2.3 cm/m2 LV Mass: 274.20 67-162/88-224 g LV Mass Index: 104.65 43-95/49-115 g/m2 LVOT Diam: 2.20 3.0+(-)1.3 cm 2D Systolic Function EF 4C: 57.10 >55% EF 2C: 59.00 >55% EF BiP: 58.00 >55% Mitral Valve MV Pk E: 0.71 MV PK A: 1.07 MV Decel Time: 370.00 E/A: 0.70 E'Lateral: 7.62 E'Medial: 6.74 E/E' Med: 10.60 E/E' Lat: 9.40 PHT: 108.00 MVA PHT: 2.04 Decel [place]: 1.93 Aortic Valve AoV Pk Michael: 1.41 AoV Mn Michael: 1.01 AoV VTI: 0.31 AoV Pk Grad: 8.00 Aov Mn Grad: 5.00 JENNY Cont.VTI: 3.05 LVOT LVOT Pk Michael: 1.18 LVOT Mn Michael: 0.81 LVOT VTI: 0.25 LVOT Pk Grad: 6.00 LVOT Mn Grad: 3.00 LVOT Diam: 2.20 LVOT Area: 3.80 Diastolic Function MV Pk E: 0.71 MV Pk A: 1.07 E/A: 0.70 E'Medial: 6.74 E/E' Med: 10.60 E' Laterial: 7.62 E/E' Lat: 9.40 Right Ventricle TAPSE (mm): 30.50 TVS' Michael: 16.80 Great Vessels Aorta Sinus of Valsalva: 4.00 2.0-3.5 cm Ao Asc: 3.90 2.1-3.4 cm Ao Arch: 3.60 Pulmonary Valve PV Pk Michael: 1.03 Peak PV Grad: 4.00 Updated in Other Vendor System with Status of Final Thang Gotti MD electronically signed on 12/06/2024 12:35:57 PM with status of Final
== END ==
LOC: HO.CARD 08:58
PROVIDERS: PCP Nurse Practitioner Family; Visit Provider Nurse Practitioner Family
DX: I77.810 Thoracic aortic ectasia (principal)
CPT/HCPCS: 93306

== ENCOUNTER → 2024-12-06 09:00 | Outpatient (BNV) | payer BC, SELFPAY | PROVIDERS: PCP Nurse Practitioner Family; Visit Provider Internal Medicine Cardiovascular Disease | DX: I51.89 Other ill-defined heart diseases (principal); I77.810 Thoracic aortic ectasia | CPT/HCPCS: 93306 ==

== ENCOUNTER 2025-01-07 09:52 | Outpatient (AMB) | payer BC, SELFPAY ==
[2025-01-07 09:56] VITALS: BMI 42.2
--- NOTE | 2025-01-07 09:56 | A.OFFVIS_ITS ---
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 States his right is worse. States his index finger is catching and locking for about 3 months. He is having spasm and hand tremors. He also has CTS in both hands, symptoms come and go, feels tightness in hands and also has pain at times. No EMG. 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 States his right is worse. States his index finger is catching and locking for about 3 months. Patient reports a history of locking and catching of the left ring and small fingers, but states that this has all but resolved at this time. He is having spasm and hand tremors. He also has CTS in both hands, reports that numbness and tingling is worst in the ring and small fingers of both hands, symptoms come and go, feels tightness in hands and also has pain at times. No EMG. 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 Neuro: Diminished sensation in the ulnar nerve distribution of bilateral hands in the office today Normal sensation of the tips of all other digits of bilateral hands in the o ffice today Vascular: Cap refill brisk Pain: Tenderness to palpation of the A1 sybil of right index finger Significant pain associated with locking and catching of right index finger Pain with making a closed fist with the right hand ROM: With encouragement, patient is able to make a closed fist with the right hand Patient is able to make a closed fist of the left hand without difficulty Skin: No lacerations or abrasions. General: No ecchymosis, erythema, or evidence of infection. Psych: Appears grossly normal Affect normal Attitude cooperative Assessment & Plan Assessment & Plan (1) Numbness and tingling in both hands: Code(s): R20.0 - Anesthesia of skin; R20.2 - Paresthesia of skin Category: Medical (2) Trigger finger: Code(s): M65.30 - Trigger finger, unspecified finger Category: Medical Plan 1. Numbness and tingling of both hands 2. Trigger finger, right index finger Patient is educated about these conditions Patient is educated about the typical treatment course At this time, patient is ordered EMG and nerve conduction study to assess the health of the nerves of bilateral upper extremities Patient is also advised on the treatment options for trigger finger, and would like to proceed with surgical intervention, however he would like to wait on this until after he gets his EMG and nerve conduction study, as he would like to get both issues in the right hand taken care of at the same time I feel that this is also the most advisable option Follow-up after EMG and nerve conduction study for results review and discussion of further indicated treatment options, sooner with any acute concerns Orders: Orders NE electromyogram (EMG) Today R20.0 - Anesthesia of skin, R20.2 - Paresthesia of skin NE nerve conduction velocity Today R20.0 - Anesthesia of skin, R20.2 - Paresthesia of skin Medications: Refilled montelukast 10 mg PO BEDTIME 90 tabs 0RF Coding Level of Care Code New Pt Level 3 (38438) Diagnoses Numbness and tingling in both hands R20.0; R20.2 Trigger finger M65.30
== END 2025-01-07 10:23 | disposition home or self-care (01) ==
LOC: HO.HOS 09:53
PROVIDERS: PCP Nurse Practitioner Family
DX: R20.0 Anesthesia of skin (principal); R20.2 Paresthesia of skin; M65.321 Trigger finger, right index finger
CPT/HCPCS: 99203

== ENCOUNTER 2025-05-15 10:18 | Outpatient (AMB) | payer BC, SELFPAY ==
[2025-05-15 10:34] VITALS: BP 188/100; PULSE 84; RESP 16; O2SAT 96; BMI 40.6
--- NOTE | 2025-05-15 10:34 | A.OFFPC_ITS ---
Vital Signs 05/15/25 10:34 05/15/25 11:06 Height 6 ft 1 in Weight 308 lb BMI 40.6 BP 188/100 H 134/78 Blood Pressure Location Rt brachial Rt brachial Position Sitting Sitting Respiration 16 Pulse 84 Pulse Source Pulse Oximeter Pulse Oximetry (%) 96 Oxygen Delivery Method Room Air Intake Visit Reasons: 6m follow up Allergies No Known Allergies (No Known Allergies*) Allergy (Verified 01/07/25 10:05) Medication List - Last Reconciled 05/15/25 by HARIKA RuizP- albuterol sulfate 2.5 mg (3 mL) inhalation QID PRN 30 days albuterol sulfate 90 mcg/actuation 2 puffs PO Q6H PRN amlodipine 5 mg PO DAILY 90 days diazepam (Valium) 5 mg PO ONCE PRN diclofenac potassium 25 mg PO BID diclofenac sodium 75 mg PO BID fluticasone propion-salmeterol 250-50 mcg/dose (Wixela Inhub) 1 inh inhalation BID hydrochlorothiazide 12.5 mg PO DAILY lisinopril 40 mg PO DAILY montelukast 10 mg PO BEDTIME trazodone 200 mg (2 x 100 mg) PO BEDTIME PRN Tobacco use date assessed: 11/14/24 Dental Screening Dental Screen Date: 11/14/24 HPI 6m follow up HPI Details Chief Complaint The patient is here for follow-up for hypertension. History of Present Illness The patient is a 50-year-old male presenting for a follow-up visit for hypertension. His blood pressure is notably high in the office, though he reports home readings are typically in the 120s systolic over 80s diastolic. He appears very anxious during the visit. He has a history of asthma, which is managed with albuterol and Wixela inhalers, and he tolerates these medications well. The patient also has a history of heavy smoking and reports some shortness of breath. Social History - Substance Use: The patient has a histo ry of heavy smoking. Health Maintenance - A referral for the lung screening prog renetta will be reordered due to his previous history of heavy smoking. Review of Systems - Cardiovascular: Denies chest pain. - Respiratory: Reports some shortness of breath - Psychiatric: Reports feeling very anxi ous in the office. -denies any anguiano, dizziness, blurred visio n Physical Exam General: Cooperative, healthy appearing, comfortable, no acute distress and well developed, obese Orientation: Patient oriented x3 Limitations: No limitations Head: Normal to inspection Ears: Hearing grossly normal bilaterally Nose: Normal external nose present Face and sinus: Normal facial exam Eyes: Appearance normal, both eyes and all related structures Neck: Normal visual inspection and Yes full ROM, no carotid bruits noted Respiratory: Slightly diminished, able to speak in complete sentences. Clear to auscultation bilaterally Cardiovascular: Regular rate and rhythm. Normal S1 and S2 GI: Normal to inspection. Soft to palpation and nontender Skin: No rashes or lesions noted, no edema Neuro: Patient oriented x3 Extremities: Normal to inspection Results Plan 1. Hypertension The patient's blood pressure is extremely high in the office, though he reports lower readings at home, suggesting possible white coat hypertension. Due to the significantly elevated in-office reading, amlodipine will be added to his medication regimen. Labs will be ordered for further evaluation. Will have him take his BP at home, send me values 2. Asthma And History Of Smoking The patient has a history of asthma and heavy smoking, and reports some shortness of breath (quit approx 2 years ago). He is tolerating his current inhalers, albuterol and Wixela. Given his significant smoking history, a referral for the lung screening program will be reordered. Discussion Notes I discussed with the patient that his blood pressure is very high in the office, and for this reason, I am adding amlodipine to his medication regimen. I highly recommended that he completes lab work in the near future. Additionally, I informed him that I will be reordering a referral to the lung screening program due to his history of heavy smoking. Patient Instructions - We are adding a new medication, amlodi pine, to help control your blood pressure. - Please get your blood tests done soon. - We are renewing your referral for a mono ng screening test because of your past smoking. - Continue to use your Albuterol and Wix david inhalers for your asthma as you have been. - You do not have chest pain or swelling in your legs. 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 Cognitive needs: No Hearing needs: No Vision needs: No Questionnaire Thrive Questionnaire Date Thrive assessed: 11/07/24 I am a: Patient What is your living situation today?: I have a steady place to live Within the past 12 months, did the food you bought not last and you didn't have the money to get more?: Never true Within the past 12 months, did you worry whether your food would run out before you got money to buy more?: Never true Do you have trouble paying for medicines?: No Do you have trouble getting transportation to medical appointments?: No Do you have trouble paying your heating and electricity bill?: No Do you have trouble taking care of your child, family member or friend?: No Do you have trouble with day-to-day activities such as bathing, preparing meals, shopping, managing finances, etc.?: No Are you currently unemployed and looking for a job?: No Are you interested in more education?: No Please select the resources that you would like help with: None Currently or been in a relationship where the following occur: No concerns reported THRIVE Score: 0 REBECCA-7 AMB Questionnaire REBECCA-7 Date REBECCA - 7 assessed: 11/14/24 Source: Developed by Drs. Felipe Alberts, Ya Cleary, Billy Roach and colleagues, with an educational james from [employer]. Physical exam (Primary Care) Vital Signs: Last Vital Signs Pulse 84 05/15/25 10:34 Resp 16 05/15/25 10:34 BP 134/78 05/15/25 11:06 Pulse Ox 96 05/15/25 10:34 Oxygen Delivery Method Room Air 05/15/25 10:34 BMI result Body Mass Index 40.6 Tobacco/Smoking Status: Tobacco use Status Tobacco use date assessed 11/14/24 05/15/25 10:34 Patient Tobacco Use Status Former Tobacco user 05/15/25 10:34 e-Cigarette/Vaping Use Never Used 05/15/25 10:34 Thrive Assessment: Date of Thrive Assessment Date Thrive assessed 11/07/24 05/15/25 10:34 Currently or been in a relationship where the following occur: No concerns reported Coding Level of Care Code Est Pt Level 3 (86259) Diagnoses Smoker F17.200 SOB (shortness of breath) R06.02 Asthma J45.909 Uncontrolled hypertension I10 Assessment & Plan Assessment & Plan (1) Smoker: Code(s): F17.200 - Nicotine dependence, unspecified, uncomplicated Category: Social Hx (2) SOB (shortness of breath): Code(s): R06.02 - Shortness of breath Category: Medical (3) Asthma: Code(s): J45.909 - Unspecified asthma, uncomplicated Category: Medical (4) Uncontrolled hypertension: Code(s): I10 - Essential (primary) hypertension Category: Medical Plan . Orders: Referrals Cologuard Test Z12.11 - Encounter for screening for malignant neoplasm of colon, Z12.12 - Encounter for screening for malignant neoplasm of rectum Medications: New amlodipine 2.5 mg PO DAILY 90 tabs 0RF Refilled albuterol sulfate 90 mcg/actuation 2 puffs PO Q6H PRN 8.5 grams 6RF for wheezing
[2025-05-15 11:06] VITALS: BP 134/78
== END 2025-05-15 13:37 | disposition home or self-care (01) ==
LOC: HO.HMCC 10:19
PROVIDERS: PCP Nurse Practitioner Family; Visit Provider Nurse Practitioner Family
DX: F17.200 Nicotine dependence, unspecified, uncomplicated (principal); R06.02 Shortness of breath; J45.909 Unspecified asthma, uncomplicated; I10 Essential (primary) hypertension